=== PATIENT | female | born 1970 | race Two or more races ===

== ENCOUNTER 2017-03-29 06:12 | Day surgery (SDC) | payer BC ==
[2017-03-26 17:04] VITALS: BMI 29.5
[~2017-03-29] VITALS: Ht 162.6 cm; Wt 80.0 kg
[2017-03-29] VITALS (19 sets, daily range): BP systolic 120–153; BP diastolic 66–90; PULSE 64–85; RESP 12–20; Ht 162.6 cm; Wt 80.0 kg
[2017-03-29] MEDS ORDERED: CEFAZOLIN 2 GM/50 ML (PMX) 50 ML IVPB SCH (07:00)
[2017-03-29] MEDS ORDERED: SOD CHLORIDE 0.9% 1,000 ML IV SCH (07:00)
[2017-03-29] MEDS ORDERED: METF500T4 PO (07:40)
[2017-03-29] MEDS ORDERED: NAPR-688 PO (07:40)
[2017-03-29] MEDS ORDERED: HYDR-906 PO (07:40)
[2017-03-29] MEDS ORDERED: NORE5TAB15 PO (07:40)
[2017-03-29] MEDS ORDERED: LISI-313 PO (07:40)
[2017-03-29] MEDS ORDERED: GLIP5TAB13 PO (07:40)
[2017-03-29] MEDS ORDERED: ATOR10TA65 PO (07:40)
[2017-03-29 07:50] LABS: BASOPHILS % 0.7 % (0.0-2.0); EOSINOPHILS # 0.2 10^3/ul (0.0-0.5); EOSINOPHILS % 2.5 % (0.0-7.0); HEMATOCRIT 29.8 % (37.0-47.0); HEMOGLOBIN 8.9 g/dl (12.0-16.0); LYMPHOCYTES # 2.3 10^3/ul (0.8-2.9); LYMPHOCYTES % 37.1 % (15.0-51.0); MEAN CORPUSCULAR HEMOGLOBIN 20.9 pg (29.0-33.0); MEAN CORPUSCULAR HGB CONC 29.9 g/dl (32.0-37.0); MEAN CORPUSCULAR VOLUME 70.1 fl (82.0-101.0); MONOCYTE # 0.5 10^3/ul (0.3-0.9); MONOCYTES % 8.5 % (0.0-11.0); NEUTROPHIL # 3.1 10^3/ul (1.6-7.5); NEUTROPHILS % 50.9 % (39.0-77.0); PLATELET COUNT 244 10^3/UL (140-415); RED BLOOD COUNT 4.25 10^6/ul (4.20-5.40); RED CELL DISTRIBUTION WIDTH 15.9 % (11.5-14.5); WHITE BLOOD COUNT 6.1 10^3/ul (4.8-10.8)
[2017-03-29 07:59] LABS: ALBUMIN/GLOBULIN RATIO 1.21; BILIRUBIN,INDIRECT 0.1 mg/dl (0-1.1); BILIRUBIN,TOTAL 0.1 mg/dl (0.2-1.3); TOTAL PROTEIN 7.3 g/dl (6.1-8.1)
[2017-03-29 08:01] LABS: CREATININE 0.59 mg/dl (0.44-1.00); POTASSIUM 4.3 mmol/L (3.5-5.1)
[2017-03-29 08:07] LABS: INR 0.86; PROTIME 11.7 Sec (12.2-14.2); PT RATIO 0.9
[2017-03-29 08:13] LABS: PARTIAL THROMBOPLASTIN TIME 23.3 Sec (25.0-35.0)
[2017-03-29] MEDS ORDERED: INSULIN ASPART [NOVOLOG] 3 ML PEN SC SCH (08:30)
[2017-03-29] MEDS ORDERED: ROCURONIUM 50 MG INJ ONE ×2 (08:50→09:06)
[2017-03-29] MEDS ORDERED: BUPIVACAINE 0.25% (MPF) 30 ML INJ ONE (08:56)
[2017-03-29] MEDS ORDERED: MIDAZOLAM 1 MG/ML 2 ML INJ ONE (09:06)
[2017-03-29] MEDS ORDERED: SUCCINYLCHOLINE CHLORIDE 100 MG/5 ML SYG IV ONE (09:06)
[2017-03-29] MEDS ORDERED: PROPOFOL 20 ML ONE (09:06)
[2017-03-29] MEDS ORDERED: FENTAnyl 50 MCG/ML VIAL ONE (09:06)
[2017-03-29] MEDS ORDERED: LIDOCAINE 2% (SDV) 5 ML INJ ONE (09:06)
[2017-03-29] MEDS ORDERED: CEFAZOLIN 1 GM INJ ONE (09:16)
[2017-03-29] MEDS ORDERED: FAMOTIDINE 20 MG INJ ONE (09:18)
[2017-03-29] MEDS ORDERED: ONDANSETRON 4 MG INJ ONE (09:18)
[2017-03-29] MEDS ORDERED: MEPERIDINE 25 MG INJ IV PRN (09:30)
[2017-03-29] MEDS ORDERED: ONDANSETRON 4 MG INJ IV PRN (09:30)
[2017-03-29] MEDS ORDERED: FENTAnyl 50 MCG/ML VIAL IV PRN ×2 (09:30)
[2017-03-29] MEDS ORDERED: DIPHENHYDRAMINE 50 MG INJ IV PRN (09:30)
[2017-03-29] MEDS ORDERED: HYDROmorphONE (0.2 MG/ML) 10ML SYG IV PRN (09:30)
[2017-03-29] MEDS ORDERED: PROCHLORPERAZINE 10 MG INJ IV PRN (09:30)
[2017-03-29] MEDS ORDERED: EPHEDrine SULFATE 50 MG/5 ML SYG ONE (09:39)
[2017-03-29] MEDS ORDERED: HYDROmorphONE 2 MG/ML SYG ONE (09:43)
[2017-03-29] MEDS ORDERED: LABETALOL HCL 20MG INJ ONE (09:52)
--- NOTE | 2017-03-29 09:59 | OPR ---
Date/Time of Note Date/Time of Note DATE: 03/29/17 TIME: 09:53 Operative Report Procedure Date: Mar 29, 2017 Preoperative Diagnosis symptomatic gallstones and liver [place] Postoperative Diagnosis same Operation Performed 1. laparoscopic cholecystectomy cpt code 67564 2. liver wedge biopsy cpt code 57519 3. therapeutic injection of subcutaneous marcaine cpt code 02248 Surgeon: Ann-Marie BADILLO Specimens gallbladder wedge liver biopsy Indications This is a 46-year-old female with symptomatic gallstones and liver [place]. Patient requires surgical excision of her gallbladder and liver biopsy. Risks alternatives benefits and personnel were discussed with patient. Patient expressed understanding and consents to the operation. Procedure Description Patient is taken to the OR and prepped and draped in usual sterile fashion. Surgical timeout was performed IV antibiotics are given. Supraumbilical midline incision is made with a 15 blade. Dissection cautery was carried onto the fascia. 0 Vicryl stay sutures were placed on either side of the midline. The midline was divided. Balloon Cruz trocar is introduced pneumoperitoneum is established. Midepigastric 12 mm optical trocar was placed under direct visualization right upper quadrant right upper flank 5 mm optical trochars were placed under direct visualization. Upon initial inspection there are some adhesions to the gallbladder which were taken down bluntly. The gallbladder was retracted in a lateral and out direction. The cystic duct is identified and the critical view is established. The cystic duct and cystic artery are divided using a 35 mm echelon vascular stapler as the tissue in this area was thickened. The staple line was reinforced clips. Gallbladder is taken off the gallbladder bed and retrieved using an Endo Catch bag. The gallbladder bed is hemostatic. Minimal irrigation is used. Ports removed under direct visualization. 0 Vicryl stay sutures were tied down. Skin is closed using skin steven. Therapeutic subcutaneous Marcaine was injected along all incision sites. Dry dressings were applied. Ann-Marie BADILLO Mar 29, 2017 09:59
[2017-03-29] MEDS ORDERED: HYDROCODONE/APAP (5/325) TAB PO ONE (10:00)
== END 2017-03-29 15:15 | disposition home or self-care (01) ==
LOC: SDS 06:12
PROVIDERS: ATTEND Surgery
DX: K80.20 Calculus of gallbladder without cholecystitis without obstruction (principal); K76.0 Fatty (change of) liver, not elsewhere classified; E78.5 Hyperlipidemia, unspecified; E11.9 Type 2 diabetes mellitus without complications; I10 Essential (primary) hypertension
CPT/HCPCS: 47100; 47562; 80053; 82962; 84703; 85025; 85610; 85730; 88304; 88307; 88313; J0690; J1170; J1815; J2250; J2405; J3010; J7999; Z7512; Z7610